=== PATIENT | male | born 1990 | race Caucasian/White ===

== ENCOUNTER → 2021-02-24 15:10 | Outpatient (CLI) | payer OTHER, SELFPAY ==
[2014-06-17 15:50] VITALS: BMI 31.4
[2021-02-24 18:07] LABS: Anion Gap 8 (5-15); BUN 13 mg/dL (7-18); BUN/Creat Ratio 12.3 RATIO (10-20); Chloride 102 mmol/L (98-107); Cholesterol 180 mg/dL (200); Creatinine, Serum 1.06 mg/dL (0.70-1.30); EST Glomerular Filtration Rate 87 mL/min (>60); Est Glom Filt Rate - Afr Amer 105 mL/min (>60); Glucose 90 mg/dL (74-106); High Density Lipoprotein 40 mg/dL; Potassium 3.9 mmol/L (3.5-5.1); Sodium Level 140 mmol/L (136-145); Thyroid Stim Hormone (TSH) 1.32 uIU/mL (0.358-3.74); Triglycerides 129 mg/dL; Very Low Density Lipoprotein 26 mg/dL (5-40)
== END ==
PROVIDERS: PCP Family Medicine; Visit Provider Family Medicine
DX: Z00.00 Encounter for general adult medical examination without abnormal findings (principal)
CPT/HCPCS: 36415; 80048; 80061; 84403; 84443

== ENCOUNTER → 2021-03-28 08:32 | Outpatient (CLI) | payer OTHER, SELFPAY ==
[2014-06-17 15:50] VITALS: BMI 31.4
== END ==
PROVIDERS: PCP Family Medicine; Visit Provider Family Medicine
DX: E66.9 Obesity, unspecified (principal)
CPT/HCPCS: 36415; 84403

== ENCOUNTER → 2021-06-26 15:37 | Outpatient (CLI) | payer OTHER, SELFPAY ==
--- NOTE | 2021-06-26 15:42 | RAD_ITS ---
HISTORY: Upper respiratory infection EXAMINATION/TECHNIQUE: XR Chest 2 Views COMPARISON: None FINDINGS: LINES/DEVICES: None. LUNGS: No focal airspace consolidation. No pulmonary edema. No pleural effusion. No pneumothorax. MEDIASTINUM AND CARDIOVASCULAR STRUCTURES: Cardiac silhouette not enlarged. Central airways and mediastinal contour are unremarkable. BONES AND SOFT TISSUES: No acute findings. RAD/Chest PA and Lateral IMPRESSION: No radiographic evidence of acute cardiopulmonary disease. at 0435 Reported and signed by: Lazaro Quintero MD Electronically Signed: Lazaro Quintero MD at 4:34 EDT Tel , Service support ,
[2021-06-26 18:05] LABS: Hematocrit 41.5 % (40-54); Mean Corp Hgb Conc 33.7 g/dL (32-36); Mean Corpuscular Hgb 29.3 pg (27.0-32.0); Mean Corpuscular Volume 86.8 fL (80-94); Mean Platelet Vol. 9.8 fl (6.2-12.0); Platelet Count 343 K/mm3 (150-450); RBC Distribution Width CV 12.5 % (11.6-14.6); RBC Distribution Width SD 39.5 fl (35.1-43.9); Red Blood Count 4.78 M/mm3 (4.6-6.2); White Blood Count 10.4 K/mm3 (4.4-11.0)
[2021-06-26 18:12] LABS: Anion Gap 9 (5-15); BUN 11 mg/dL (7-18); BUN/Creat Ratio 9.8 RATIO (10-20); Chloride 101 mmol/L (98-107); Creatinine, Serum 1.12 mg/dL (0.70-1.30); EST Glomerular Filtration Rate 81 mL/min (>60); Est Glom Filt Rate - Afr Amer 98 mL/min (>60); Glucose 87 mg/dL (74-106); Potassium 3.6 mmol/L (3.5-5.1); Sodium Level 138 mmol/L (136-145)
== END ==
PROVIDERS: PCP Family Medicine; Referring Provider Family Medicine; Visit Provider Family Medicine
DX: J06.9 Acute upper respiratory infection, unspecified (principal); R00.0 Tachycardia, unspecified
CPT/HCPCS: 36415; 71046; 80048; 85027; 85379; 87635; U0005; U0003

== ENCOUNTER 2021-06-27 18:16 | Emergency (ER) | payer OTHER, SELFPAY ==
[2021-06-27 18:16] VITALS: BP 151/90; PULSE 128; RESP 18; TEMP 39.4; O2SAT 97; BMI 34.0
[2021-06-27 18:17] VITALS: BP 151/90; PULSE 128; RESP 18; TEMP 39.4; O2SAT 97
--- NOTE | 2021-06-27 18:52 | EKG12_ITS ---
Test Reason : DYSRYTHMIA Blood Pressure : / mmHG Vent. Rate : 104 BPM Atrial Rate : 104 BPM P-R Int : 170 ms QRS Dur : 138 ms QT Int : 362 ms P-R-T Axes : 052 007 013 degrees QTc Int : 476 ms Sinus tachycardia Right bundle branch block Abnormal ECG Confirmed by TRACE VO, SADA ([id number]), associate editor SHAMAR SARAVIA ([id number]) on 06/30/2021 12:47:22 PM Referred By: CLEMENT Confirmed By:MAYCOL WOODWARD MD
[2021-06-27 19:14] VITALS: TEMP 39.4
--- NOTE | 2021-06-27 19:14 | EX.ED.DYSGE1 ---
HPI History of Present Illness Chief Complaint: Fever Informant: patient Onset/Context/Timing Onset: Weeks Context: Gradual Onset Timing: Continuous Current Severity: Mild Maximum Severity: Mild Narrative Narrative: 31-year-old male no significant past medical history. States he has not felt well since . He was initially seen in urgent care treated for otitis media with amoxicillin. And had a follow-up virtual visit with his primary care physician who put him on a cephalosporin. Says just been fatigued and real tired. Says he has a mild sore throat now. He denies any nausea vomiting or diarrhea. No shortness of breath or chest pain. No abdominal pain. He denies any melena. He denies any weight loss. He denies any dysuria. Said he is also recently been treated for viral URI with prednisone. She is not getting better and yesterday developed a fever. Prior similar symptoms: No Recent Illness/Hospitalization: No PFSH PFSH Medical History no medical history Home Medications prednisone See Taper PO DAILY 06/27/21 [History Last Taken Unknown] Allergy/AdvReac Type Severity Reaction Status Date / Time No Known Allergies Allergy Verified 06/27/21 18:40 Social History Smoking Status: Former smoker ROS ROS ED ROS Narrative Fatigue. Fever. Review of Systems ROS Unobtainable: Denies due to encephalopathy Constitutional Constitutional ED: Reports fever(s) Eyes Eyes: Denies change in vision ENT ENT ED: Reports sore throat; Denies ear pain Cardiovascular Cardiovascular: Denies chest pain Respiratory/Chest Respiratory/Chest: Denies dyspnea Gastrointestinal Gastrointestinal: Denies abdominal pain, diarrhea, nausea or vomiting Genitourinary Genitourinary ED: Denies dysuria or hematuria Musculoskeletal Musculoskeletal: Denies myalgias Integumentary Denies rash Neurologic Neurologic: Denies headache(s) Psychiatric Psychiatric: Denies depression Endocrine Endocrinology: Denies polyuria Allergic/Immunologic Allergic/Immunologic ED: Denies urticaria EXAM Physical Exam Narrative Exam Narrative: Young male no acute distress vital signs stable he does have a fever of 102.9. Clinically does not look septic or toxic. He is awake alert talking answering questions following commands. Pulse ox 97% on room air no hypoxia. HEENT exam unremarkable. TMs normal. Posterior pharynx normal. Moist pink. No erythema or exudate. No trouble swallowing or breathing. Neck nontender no JVD no lymphadenopathy. No meningismus. Lungs clear to auscultation bilaterally. Heart regular rhythm rate about 120 no murmur. Abdomen soft nontender normal bowel sounds no peritoneal signs. Moving all 4 extremities. Skin no rashes. No edema. Back nontender. Neurologically is awake alert with no focal motor deficits. Const Vital Signs: 06/27/21 18:16 06/27/21 18:17 06/27/21 19:14 Temperature 102.9 F H 102.9 F H 102.9 F H Temperature Source Oral Oral Oral Pulse Rate 128 H 128 H Respiratory Rate 18 18 Blood Pressure 151/90 H 151/90 H Blood Pressure Mean 110 110 Pulse Ox 97 97 Oxygen Delivery Method Room Air 06/27/21 19:25 06/27/21 20:00 06/27/21 21:00 Temperature 102.9 F H 100 F H 99.3 F H Temperature Source Oral Oral Oral Pulse Rate 128 H 105 H 105 H Respiratory Rate 18 20 H 18 Blood Pressure 151/90 H 133/84 H 118/84 H Blood Pressure Mean 110 100 95 Pulse Ox 97 96 100 Oxygen Delivery Method Room Air Positive well nourished and well developed; Negative for obese, cachectic, contractures or unkempt General Appearance ED: well developed and NAD; Negative for unkempt, cachectic, contractures, cyanotic, diaphoretic or pallor Nutritional Appearance: Negative for cachectic or obese HEENT Reports moist mucous membranes Negative for trauma or tenderness Eyes PERRL and EOMs intact bilaterally Neck no lymphadenopathy, supple and no JVD General: Negative for tenderness Chest Wall inspection of chest normal and palpation of chest normal Resp normal respiratory effort and clear to auscultation bilaterally Auscultation: Negative for rales, rhonchi or wheezes Cardio regular rhythm, S1 normal heart sound, S2 normal heart sound and no murmurs Rate: tachycardic GI normal to inspection, nondistended, normoactive bowel sounds, non-tender, non-distended and no masses Inspection: Negative for abdominal distention Auscultation: normoactive bowel sounds Palpation: soft; Negative for tender, guarding or rebound tenderness present Back/Spine no CVA tenderness Cervical Spine: Negative for cervical spine tenderness Thoracic Spine / Upper Back: Negative for thoracic spinal tenderness or paraspinal muscle tenderness Lumbar Spine / Lower Back: Negative for lumbar spinal tenderness Extremity normal to inspection General Extremety ED: Negative for edema or tenderness General Extremity: Negative for edema Neuro oriented x3, CN's II-XII intact bilaterally and no sensory deficits noted Sensorium / Orientation: alert; Negative for orientation impaired, lethargic or stuporous Motor Exam: strength 5/5 throughout Psych mental status grossly normal Appearance: Negative for unkempt Attitude: No agitated Mood & Affect: Negative for depressed, anxious or tearful Skin no rashes or lesions noted, no wounds and No skin turgor normal General Skin Exam: Negative for elasticity normal, jaundice or pallor Rashes: No rashes noted MDM MDM MDM Narrative Medical decision making narrative: 31-year-old male with fatigue and just not feeling well for a month. Antibiotics for otitis media and then possibly a sore throat. He developed a fever in the last 48 hours. Clinically benign exam. No specific source. We went through the sepsis protocol. Treated with Toradol for his fever because he had Tylenol last several hours. Repeat exam patient is doing well at 9:25 PM. His exam is benign. He clinically looks well. Significant other is at bedside. The 3 of us went over all his test results. I reexamined him and there is no new findings. He will be discharged home. Fluids and rest. Tylenol Motrin. He knows blood cultures are pending. And follow-up with further evaluation with his primary care physician. Lab Data Attestation: I reviewed the patient's lab results. Lab results narrative: CBC shows a white count slightly elevated 11.9. Hemoglobin 14.8. Platelets normal. PT INR PTT unremarkable. Electrolytes unremarkable gap of 7 normal BUN and creatinine. Glucose of 103. Liver enzymes normal. Lactic acid 1.3. UA normal. Mononucleus screen is negative. Chest x-ray negative. Rapid strep negative. Labs: Laboratory Results - last 24 hr 06/27/21 06/27/21 06/27/21 19:07 19:07 19:07 WBC 11.9 H RBC 5.03 Hgb 14.8 Hct 43.7 MCV 86.9 MCH 29.4 MCHC 33.9 RDW Std Deviation 39.2 RDW Coeff of Jose 12.4 Plt Count 319 MPV 9.5 Immature Gran % (Auto) 0.300 Neut % (Auto) 80.8 H Lymph % (Auto) 10.0 L Caswell % (Auto) 8.4 Eos % (Auto) 0.2 Baso % (Auto) 0.3 Absolute Neuts (auto) 9.6 H Absolute Lymphs (auto) 1.19 Nucleated RBC % 0 PT 13.1 INR 1.1 APTT 30.4 Sodium 137 Potassium 3.7 Chloride 103 Carbon Dioxide 27.0 Anion Gap 7 BUN 11 Creatinine 1.07 Estim Creat Clear Calc 100.03 Est GFR (MDRD) Af Amer 103 Est GFR (MDRD) Non-Af 85 BUN/Creatinine Ratio 10.3 Glucose 103 Lactic Acid Calcium 8.9 Total Bilirubin 0.60 AST 19 ALT 30 Alkaline Phosphatase 79 Total Protein 8.2 Albumin 3.7 Globulin 4.5 H Albumin/Globulin Ratio 0.8 L Urine Color Urine Clarity Urine pH Ur Specific Christopher Urine Protein Urine Glucose (UA) Urine Ketones Urine Occult Blood Urine Nitrite Urine Bilirubin Urine Urobilinogen Ur Leukocyte Esterase Urine RBC Urine WBC Ur Squamous Epith Cells Urine Bacteria Urine Mucus Monoscreen 06/27/21 06/27/21 06/27/21 19:07 19:07 19:10 WBC RBC Hgb Hct MCV MCH MCHC RDW Std Deviation RDW Coeff of Jose Plt Count MPV Immature Gran % (Auto) Neut % (Auto) Lymph % (Auto) Caswell % (Auto) Eos % (Auto) Baso % (Auto) Absolute Neuts (auto) Absolute Lymphs (auto) Nucleated RBC % PT INR APTT Sodium Potassium Chloride Carbon Dioxide Anion Gap BUN Creatinine Estim Creat Clear Calc Est GFR (MDRD) Af Amer Est GFR (MDRD) Non-Af BUN/Creatinine Ratio Glucose Lactic Acid 1.3 Calcium Total Bilirubin AST ALT Alkaline Phosphatase Total Protein Albumin Globulin Albumin/Globulin Ratio Urine Color Yellow Urine Clarity Clear Urine pH 7.0 Ur Specific Christopher 1.010 Urine Protein 15 H Urine Glucose (UA) Normal Urine Ketones Negative Urine Occult Blood 25 H Urine Nitrite Negative Urine Bilirubin Negative Urine Urobilinogen Normal Ur Leukocyte Esterase Negative Urine RBC 0-5 SEEN Urine WBC 0 SEEN Ur Squamous Epith Cells 0 SEEN Urine Bacteria 0 SEEN Urine Mucus 0 SEEN Monoscreen Negative Radiography Chest X-Ray - ED: 1 View, Read by ED Physician, Read by Radiologist, Normal, Heart, Lungs, Mediastinum, Bony Structures, No Acute Disease and Chronic Changes Diagnostic Testing: Clinical Impression(s) from Imaging Studies Chest X-Ray 06/27/21 19:18 IMPRESSION: No radiographic evidence of acute cardiopulmonary disease. Electronically Signed: Jitendra Basurto MD at 19:41 EDT , Service support , Rhythm Strip Rhythm Strip: Sinus Tach Rate: 104 Ectopy: None EKG Initial EKG: Attestation: I personally reviewed and interpreted this EKG as follows: Interpretation: Sinus Rhythm, No Acute Injury Pattern and Sinus Tachycardia Comments: Sinus tachycardia rate of 104 no acute signs of ME or ischemia. Right bundle branch block. No old EKG available for comparison. Discharge Plan Triage Chief Complaint: Fever ED Provider: Rony Miller Dx/Rx/DC Orders Clinical Impression: Fever Instructions: ED FUO Adult Prescriptions: No Action prednisone 10 mg tablet See Taper mg PO DAILY RF: 0 Primary Care Provider: Sanket Love Referrals: Sanket Love MD [Primary Care Provider] - 2 Days Activity Restrictions/Additional Instructions: Your test were all unremarkable today. Your blood cultures are pending if those return are positive we will call you. Plenty of fluids and rest. Alternate Tylenol Motrin for any fever. Return if you are feeling worse. Call and follow-up with your primary care physician on Wednesday. Disposition Disposition: Home, Self Care
--- NOTE | 2021-06-27 19:18 | RAD_ITS ---
EXAM: XR CHEST, 1 VIEW CLINICAL INDICATION: fever TECHNIQUE: Frontal view of the chest. This report was created using [employer] report generation technology. COMPARISON: Study done yesterday FINDINGS: LUNGS AND PLEURAL SPACES: Unremarkable. No consolidation or edema. No pneumothorax. No effusion. HEART: Unremarkable. Cardiac silhouette not enlarged. MEDIASTINUM: Central airways and mediastinal contour are unremarkable. BONES/JOINTS: Unremarkable. SOFT TISSUES: Unremarkable. RAD/Chest 1 View (Portable) IMPRESSION: No radiographic evidence of acute cardiopulmonary disease. Electronically Signed: Jitendra Basurto MD at 19:41 EDT , Service support ,
[2021-06-27 19:25] VITALS: BP 151/90; PULSE 128; RESP 18; TEMP 39.4; O2SAT 97
[2021-06-27] MEDS: Ketorolac 30 MG/ML Syringe IV (19:27)
[2021-06-27] MEDS: 0.9% Normal Saline 1,000 ML 999 ML IV (19:27)
[2021-06-27 19:29] LABS: Bacteria 0 SEEN /hpf (None Seen); Mucous, Urine 0 SEEN /hpf (<or=2+); Squamous Epithelial Cells - UA 0 SEEN /hpf (0-5); White Blood Cells 0 SEEN /hpf (0-5)
[2021-06-27 19:34] LABS: Color, Urine Yellow (Yellow); Glucose, Dipstick Normal (Normal); Ketone-Dipstick Negative (Negative); Leukocyte Esterase-Dipstick Negative /ul (Negative); Nitrite-Dipstick Negative (Negative); Occult Blood-Urine 25 /ul (Negative); Protein-Dipstick 15 mg/dl (Negative); Urine Bilirubin Dipstick Negative (Negative); Urine Clarity Clear (Clear); Urine Urobilinogen Normal (Normal)
[2021-06-27 19:38] LABS: Internal QC Validated? YES +Cl - CLEAR BKGD; Monotest Negative (Negative)
[2021-06-27 19:40] LABS: Red Blood Cells-Urine 0-5 SEEN /hpf (0-5)
[2021-06-27 19:42] LABS: Absolute Lymphocyte Count 1.19 X10^3/uL (0.83-4.51); Absolute Neutrophil Count 9.6 X10^3/uL (2.0-7.7); Basophil# 0.04 X10^3/uL; Basophil% 0.3 % (0-1); Eosinophil# 0.02 X10^3/uL; Eosinophils% 0.2 % (0-5); Hematocrit 43.7 % (40-54); Hemoglobin 14.8 g/dL (13.0-16.5); Lymphocyte # 1.19 X10^3/ul (0.83-4.51); Mean Corp Hgb Conc 33.9 g/dL (32-36); Mean Corpuscular Hgb 29.4 pg (27.0-32.0); Mean Corpuscular Volume 86.9 fL (80-94); Mean Platelet Vol. 9.5 fl (6.2-12.0); Monocyte% 8.4 % (0-10); NRBC Flagged by Analyzer 0 % (0-5); Neutrophil # 9.63 X10^3/uL (2.7-7.7); Neutrophil % 80.8 % (47-70); Platelet Count 319 K/mm3 (150-450); RBC Distribution Width CV 12.4 % (11.6-14.6); RBC Distribution Width SD 39.2 fl (35.1-43.9); Red Blood Count 5.03 M/mm3 (4.6-6.2); White Blood Count 11.9 K/mm3 (4.4-11.0)
[2021-06-27 19:52] LABS: International Normalized Ratio 1.1; Prothrombin Time (Protime)PT. 13.1 SECONDS (11.7-14.9)
[2021-06-27 19:53] LABS: Partial Thromboplast Time 30.4 Seconds (24.1-36.2)
[2021-06-27 20:00] VITALS: BP 133/84; PULSE 105; RESP 20; TEMP 37.7; O2SAT 96
[2021-06-27 20:02] LABS: ALB/GLOB Ratio 0.8 RATIO (0.9-2.4); AST(SGOT) 19 U/L (15-37); Alanine Aminotransfer ALT/SGPT 30 U/L (16-61); Albumin, Serum 3.7 g/dL (3.2-5.0); Alkaline Phosphatase 79 U/L (45-117); Anion Gap 7 (5-15); BUN 11 mg/dL (7-18); BUN/Creat Ratio 10.3 RATIO (10-20); Calcium,Total 8.9 mg/dL (8.5-10.1); Chloride 103 mmol/L (98-107); Creatinine, Serum 1.07 mg/dL (0.70-1.30); EST Glomerular Filtration Rate 85 mL/min (>60); Est Glom Filt Rate - Afr Amer 103 mL/min (>60); Estimated Creatinine Clearance 100.03 ml/min; Globulin 4.5 g/dL (2.2-4.2); Glucose 103 mg/dL (74-106); Potassium 3.7 mmol/L (3.5-5.1); Protein, Total 8.2 g/dL (6.4-8.2); Sodium Level 137 mmol/L (136-145)
[2021-06-27 20:04] LABS: Lactic Acid 1.3 mmol/L (0.4-1.9)
[2021-06-27 21:00] VITALS: BP 118/84; PULSE 105; RESP 18; TEMP 37.4; O2SAT 100
== END 2021-06-27 21:41 | disposition home or self-care (01) ==
PROVIDERS: Emergency Provider Emergency Medicine; PCP Family Medicine
DX: R50.9 Fever, unspecified (principal); Z87.891 Personal history of nicotine dependence
CPT/HCPCS: 71045; 80053; 81001; 83605; 85025; 85610; 85730; 86308; 87040; 87086; 87880; 93005; 96361; 96374; 99285; J7030; A4216

== ENCOUNTER → 2021-06-30 | Outpatient (CLI) | payer OTHER, SELFPAY | END | disposition home or self-care (01) | LOC: LABSPEC 15:51 | PROVIDERS: PCP Family Medicine; Referring Provider Otolaryngology Otolaryngology/Facial Plastic Surgery; Visit Provider Otolaryngology Otolaryngology/Facial Plastic Surgery | DX: J02.9 Acute pharyngitis, unspecified (principal) | CPT/HCPCS: 87070 ==

== ENCOUNTER → 2021-09-15 | Outpatient (CLI) | payer OTHER, SELFPAY | END | disposition home or self-care (01) | LOC: LABSPEC 10:20 | PROVIDERS: PCP Family Medicine; Referring Provider Physician Assistant; Visit Provider Physician Assistant | DX: Z11.52 Encounter for screening for COVID-19 (principal) | CPT/HCPCS: 87635; U0005; U0003 ==

== ENCOUNTER → 2023-08-18 | Outpatient (CLI) | payer BC, SELFPAY ==
[2023-08-18 15:47] LABS: ALB/GLOB Ratio 1.1 RATIO (0.9-2.4); AST(SGOT) 17 U/L (15-37); Alanine Aminotransfer ALT/SGPT 28 U/L (16-61); Alkaline Phosphatase 65 U/L (45-117); Anion Gap 6 (5-15); BUN 14 mg/dL (7-18); BUN/Creat Ratio 14.3 RATIO (10-20); Calcium,Total 9.1 mg/dL (8.5-10.1); Chloride 104 mmol/L (98-107); Creatinine, Serum 0.98 mg/dL (0.70-1.30); EST Glomerular Filtration Rate 93 mL/min (>60); Est Glom Filt Rate - Afr Amer 113 mL/min (>60); Globulin 3.8 g/dL (2.2-4.2); Glucose 110 mg/dL (74-106); Protein, Total 7.8 g/dL (6.4-8.2); Sodium Level 139 mmol/L (136-145)
== END | disposition home or self-care (01) ==
LOC: MFPLAB 14:03
PROVIDERS: PCP Family Medicine; Visit Provider Family Medicine
DX: B35.1 Tinea unguium (principal)
CPT/HCPCS: 36415; 80053

== ENCOUNTER 2023-09-21 07:09 | Day surgery (SDC) | payer BC, SELFPAY ==
--- NOTE | 2023-09-21 07:17 | PCM.HP.BLA ---
History and Physical Date of Admission: 09/21/23 Visit Reasons: ANAL FISSURE Chief Complaint: anal fissure Is patient in pain?: No Allergies No Known Allergies Allergy (Verified 08/20/23 13:07) Medications linaclotide 145 mcg capsule (Linzess) 145 mcg PO DAILY 08/20/23 [History Confirmed 08/20/23] multivitamin 1 tab PO DAILY 08/20/23 [History Confirmed 08/20/23] PFSH Medical History (Updated 08/20/23 @ 13:05 by Delicia Qiu) Sleep apnea Surgical History (Updated 08/20/23 @ 13:06 by Delicia Qiu) History of appendectomy History of repair of ACL Social History (Updated 08/20/23 @ 13:06 by Delicia Qiu) Smoking Status: Former smoker alcohol intake: current substance use type: does not use HPI HPI HPI: 63-year-old gentleman is referred by Dr. Sanket Love for surgical consultation regarding a suspected anal fissure and a written copy my surgical consult and recommendations will return to him. Patient states that he has had this fissure for least 5 years. 90% of the time is comfortable but 10% of the time is absolutely miserable. He will have pain and bleeding. He does have problems with chronic constipation. He has tried Metamucil in the past and he felt that that only made things worse. Currently he is on Linzess with some improvement. He has never had a colonoscopy. He has never had any visual anoscopic inspection of this area. There is no family history of colon cancer or colon polyps inflammatory bowel disease. 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 ROS General General: No weight change, appetite, fatigue, colon cancer, breast cancer or weakness HEENT HEENT: No difficulty swallowing, eye injury, eye surgery, swollen glands or hoarseness Endo Endocrine: No thyroid disease, diabetes mellitus, thyroid cancer, Hair loss, heat intolerance or cold intolerance Skin Skin: No rash or changing moles Musc Musculoskeletal: No back problems, arthritis, rheumatoid arthritis, gout or joint pain Cardio Cardiovascular: No murmur, pacemaker, heart disease, atrial fibrillation, high blood pressure, heart attack, heart stent, palpitations, shortness of breat with exertion or chest pain Psych Psychiatric: No depression, anxiety or hearing voices Resp Respiratory: No shortness of breath, Yes sleep apnea, No cough, No COPD, No asthma, No emphysema and No wheezing Gastro Gastrointestinal: No abdominal pain, No nausea or vomiting, No diarrhea, Yes constipation, No blood in stool, No acid reflux, No hemorrhoids, No ulcers, No gallbladder problem and No black,tarry stools Omid Hematologic: No blood thinners, No blood disorders, No bleeding, No anemia and No blood clots Neuro Neurologic: No system reviewed and no additional complaints, except as documented, No as per HPI, No abnormal gait, No abnormal hearing, No abnormal movements, No abnormal speech, No behavioral changes, No burning sensations, No confusion, No convulsions, No disequilibrium, No dizziness, No localized weakness, No frequent falls, No headache(s), No lack of coordination, No loss of vision, No memory loss, No numbness, No other visual disturbances, No radicular pain, No restless legs, No sensory deficit, No syncope, No tingling, No tremor(s), No weakness and No other Exam Const General: cooperative, healthy appearing, comfortable and no acute distress [facility] Head: normal to inspection Eyes General: appearance normal, both eyes and all related structures Neck Neck: normal visual inspection Chest Chest palpation & inspection: normal inspection of the chest Resp Effort & Inspection: normal respiratory effort Auscultation: clear to auscultation bilaterally Cardio Rate: regular rate Rhythm: regular rhythm GI Inspection: normal to inspection Other: Abdomen soft, overweight, nontender, no hepatosplenomegaly External anal exam reveals some slight dried up desquamation. Posterior anal fissure suspected with some acute erythema. 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 When it is symptomatic it is very uncomfortable. I recommend to him diltiazem ointment twice daily and we can initiate that now. With this chronicity of anal fissure I do not think hydrocortisone suppositories will assist. We discussed treatment options like anal fissurectomy and Botox therapy and diltiazem therapy and lateral internal sphincterotomy of variable lengths. We also discussed potential involvement of colorectal surgeon for a advancement flap. I do recommend to the patient initiation of diltiazem and a colonoscopy for better definition. Based upon that information and the patient can decide if we then proceed with at least a fissurectomy to clean the chronicity of the area. He is an option to ask and have questions answered. Will schedule procedure at his discretion. Copy: Dr. Sanket Mclain M.D., F.A.C.S. I have examined the patient and the H&P has been reviewed. There are no clinical changes since date of exam. Justin Mclain M.D., F.A.C.S.
[2023-09-21] MEDS: Lactated Ringers 1,000 ML 15 ML IV (07:30)
--- OUTSIDE RECORDS SUMMARY | 2023-09-21 07:35 | XMS RPT_ITS | CCD ---
Author Name Unknown Address [address] [place] [address] Organization [facility] Results Test Name Value Interpretation Reference Range Facil ity Progress note 10-22-2021 Note Date & Type Note Facility 10-22-2021 Note HNO ID: [id number] Author: Jenni Houser APRN.[facility] Service: ? Author Type: Nurse Practitioner Type: Progress Notes Filed: 10/22/2021 12:05 PM Note Text: CC: Patient presents with: Sore Throat: RT ear plugged x Wednesday HPI: Hemanth Orozco is a 31 year old male who presents to the office with complaint of sore throat and ear symptoms for 4 days. Symptoms are worsening Associated symptoms includes sore throat. Denies fever, nausea, vomiting and diarrhea. Treatments tried include nothing so far. with no relief of symptoms. Sick contacts: unknown. History of asthma, frequent episodes of bronchitis, chronic bronchitis, bronchiectasis or COPD: No Smoker: No Seasonal/environmental allergies: No The ROS is otherwise negative. The patient's pmh, medications, allergies, and past visits are reviewed. PHYSICAL EXAM: BP 126/78 Pulse 97 Temp 37 ?C (98.6 ?F) Resp 16 Wt 109 kg (240 lb 6.4 oz) SpO2 98% General appearance: alert, cooperative, pleasant, in no acute distress Head: Normocephalic Eyes: EOM's intact, conjunctiva pink and moist, no icterus, sclera white, non-injected Ears: Right ear: External ear/canal- Normal, TM - erythema noted. Left ear: External ear/canal- Normal, TM - clear with good landmarks Oropharynx:moderate erythema, without exudates present No past medical history on file. No past surgical history on file. ALLERGIES Patient has no known allergies. MEDICATIONS fluticasone (FLONASE) 50 mcg/actuation nasal spray Use 2 Sprays in each nostril once daily. Rinse mouth after use. No family history on file. Social History Tobacco Use - Smoking status: Former Smoker Types: Cigarettes - Smokeless tobacco: Former User Types: Snuff Substance Use Topics - Alcohol use: Not on file - Drug use: Not on file ASSESSMENT/PLAN: 1. Sore throat - ICD9: 462, ICD10: J02.9 - STREP A MOLECULAR (POC) - negative Prescription instructions reviewed with patient as applicable. Augmentin bid for 7 days prescribed instructed to follow up if symptoms worsen. Potential red flag symptoms discussed with the patient. Reviewed appropriate action plan to take if red flag symptoms occur. Patient agreeable to treatment plan. Jenni Houser APRN.[facility] Progress note 07-21-2021 Note Date & Type Note Facility 07-21-2021 Note HNO ID: [id number] Author: Racquel Whaley PA-C Service: ? Author Type: Physician Strawberry Grower Type: Progress Notes Filed: 07/21/2021 11:09 AM Note Text: This note was created using [employer]. Subjective Hemanth Orozco is a 31 year old male. HPI Patient presents with body aches, sore throat and fever. He had a fever and sore throat 2 weeks ago and was seen in the ER where he had a negative mono and strep. He followed up with ENT and his family physician since. ENT had a positive strep culture so he completed 7 days of cefdinir about 5-7 days ago. The past 2-3 days his sore throat has returned and he started having fevers again 2-3 days ago. No cough or diarrhea. He was tested at the ER for covid19 initially and that was negative. Review of Systems Constitutional: Positive for chills and fever. Negative for fatigue. HENT: Positive for sore throat. Negative for congestion. Respiratory: Negative for cough, shortness of breath and wheezing. Cardiovascular: Negative. Gastrointestinal: Negative. Musculoskeletal: Negative. Skin: Negative. Neurological: Positive for headaches. All other systems reviewed and are negative. No past medical history on file. Current Outpatient Medications Medication Sig Dispense Refill - cefdinir (OMNICEF) 300 mg capsule Take 1 capsule by mouth twice daily for 10 days. 20 capsule 0 - fluticasone (FLONASE) 50 mcg/actuation nasal spray Use 2 Sprays in each nostril once daily. Rinse mouth after use. 1 Each 0 No current facility-administered medications for this visit. No past surgical history on file. No family history on file. Social History Tobacco Use - Smoking status: Former Smoker Types: Cigarettes - Smokeless tobacco: Former User Types: Snuff Substance Use Topics - Alcohol use: Not on file - Drug use: Not on file Objective BP 128/86 Pulse 102 Temp 37.6 ?C (99.7 ?F) Resp 16 Wt 105.9 kg (233 lb 6.4 oz) SpO2 97% Physical Exam Vitals reviewed. Constitutional: Appearance: Normal appearance. HENT: Head: Normocephalic and atraumatic. Right Ear: Tympanic membrane, ear canal and external ear normal. Left Ear: Tympanic membrane, ear canal and external ear normal. Nose: Nose normal. Mouth/Throat: Mouth: Mucous membranes are moist. Comments: Bilateral 3+ swollen tonsils with exudates. No sign of peritonsillar or retropharyngeal abscess. Cardiovascular: Rate and Rhythm: Normal rate and regular rhythm. Heart sounds: Normal heart sounds. Pulmonary: Effort: Pulmonary effort is normal. Breath sounds: Normal breath sounds. Musculoskeletal: Cervical back: Neck supple. Lymphadenopathy: Cervical: No cervical adenopathy. Skin: General: Skin is warm and dry. Findings: No rash. Neurological: General: No focal deficit present. Mental Status: He is alert and oriented to person, place, and time. Assessment and Plan ASSESSMENT/PLAN: 1. Sore throat - ICD9: 462, ICD10: J02.9 Patient positive for strep at ENT 2 weeks ago and improved on cefdinir x 7 days. Symptoms returned a few days after antibiotic finished. He is negative for strep on our PCR however he did have a positive test 2 weeks ago and improved on antibiotics. I will recheck a mono as well and covid19 being ruled out. If mono or covid positive likely can d/c the cefdinir. Discussed following up with ENT as well. Patient agreeable. - STREP A MOLECULAR (POC) - MONOTEST, INFECTIOUS MONO - 2019 CORONAVIRUS Racquel Whaley PA-C [facility] Progress note 05-27-2021 Note Date & Type Note Facility 05-27-2021 Note HNO ID: [id number] Author: Alise Malcolm APRN.[facility] Service: ? Author Type: Nurse Practitioner Type: Progress Notes Filed: 05/27/2021 9:50 AM Note Text: Subjective HPI Hemanth Orozco is a 31 year old male who presents with sinus congestion, drainage, sore throat, cough and pressure in his ears for the past 3 days. He took a rapid COVID test at work and it was negative. He has been vaccinated. Has a history of sinusitis. No fever. Review of Systems Constitutional: Negative for chills and fever. HENT: Positive for congestion, ear pain and sore throat. Respiratory: Positive for cough. Negative for shortness of breath. Cardiovascular: Negative. Musculoskeletal: Negative for myalgias. BP 118/82 Pulse 82 Temp 37 ?C (98.6 ?F) Resp 14 Wt 108.9 kg (240 lb) SpO2 97% No past medical history on file. No past surgical history on file. ALLERGIES Patient has no known allergies. MEDICATIONS amoxicillin-clavulanic acid (AUGMENTIN) 875-125 mg per tablet Take 1 tablet by mouth twice daily for 10 days. fluticasone (FLONASE) 50 mcg/actuation nasal spray Use 2 Sprays in each nostril once daily. Rinse mouth after use. No family history on file. Social History Tobacco Use - Smoking status: Former Smoker Types: Cigarettes - Smokeless tobacco: Former User Types: Snuff Substance Use Topics - Alcohol use: Not on file - Drug use: Not on file Objective Physical Exam Vitals and nursing note reviewed. HENT: Right Ear: Tympanic membrane, ear canal and external ear normal. Left Ear: Ear canal and external ear normal. A middle ear effusion is present. Tympanic membrane is injected. Nose: Congestion present. Mouth/Throat: Lips: [place]. Mouth: Mucous membranes are moist. Pharynx: Oropharynx is clear. Uvula midline. No oropharyngeal exudate or posterior oropharyngeal erythema. Cardiovascular: Rate and Rhythm: Normal rate and regular rhythm. Heart sounds: Normal heart sounds. Pulmonary: Effort: Pulmonary effort is normal. No respiratory distress. Breath sounds: Normal breath sounds. No wheezing or rales. Musculoskeletal: Cervical back: Neck supple. Lymphadenopathy: Cervical: No cervical adenopathy. Skin: General: Skin is warm and dry. Findings: No erythema or rash. Neurological: Mental Status: He is alert. ASSESSMENT/PLAN: 1. Other acute nonsuppurative otitis media of left ear, recurrence not specified - ICD9: 381.00, ICD10: H65.192 (primary diagnosis) - Will begin treatment with Amoxicillin for 10 days - Supportive care with plenty of fluids, rest, and analgesia prn. - AMOXICILLIN 875 MG-POTASSIUM CLAVULANATE 125 MG TABLET 2. Viral sinusitis - ICD9: 473.9, 079.99, ICD10: J32.9, B97.89 - Discussed viral etiology and rationale for treatment. - Symptomatic treatment with prn analgesia - Supportive care with fluids and rest - FLUTICASONE PROPIONATE 50 MCG/ACTUATION NASAL SPRAY,SUSPENSION - offered COVID test, patient declined. He did have a negative rapid test at work. - Follow-up with your PCP in 3-5 days if symptoms have not improved or sooner if symptoms worsen - Discussed red flags and need for immediate medical evaluation if any occur. - Discussed supportive care treatment with fluids, rest and analgesia. - Discussed expected course of illness Alise Malcolm, NICK.[facility] Summary Purpose Family History No Family History Records Found Advance Directives No Advanced Directives Records Found Additional Source Comments (unrecognized sect ion and content) No Status Records Found INFORMATION SOURCE (unrecogn ized section and content) FOR RECORDS PERTAINING TO PATIENTS WHO ARE OR HAVE BEEN ENROLLED IN A CHEMICAL DEPENDENCY/SUBSTANCEABUSE PROGRAM, SOME INFORMATION MAY BE OMITTED. This clinical summary was aggregated from multiple sources. Caution should be exercised in using it in the provision of clinical care. This summary normalizes information from multiple sources, and as a consequence, information in this document may materially change the coding, format and clinical context of patient data. In addition, data may be omitted in some cases. CLINICAL DECISIONS SHOULD BE BASED ON THE PRIMARY CLINICAL RECORDS. [employer] provides no warranty or guarantee of the accuracy or completeness of information in this document.
[2023-09-21 07:51] VITALS: BP 119/74; PULSE 100; RESP 16; TEMP 36.4; O2SAT 97; BMI 43.9
--- NOTE | 2023-09-21 08:15 | COLBX_PTH ---
PATHOLOGY RESULTS PATIENT: HEMANTH SOTOMAYOR LOC: EN U#:[id number] AGE/SX: 33/M ROOM: RE09/21/[address]: Dr. Justin Mclain MD : 1990 BED: DIS: 09/21/2023 SPEC #: [id number] RECD: 09/21/23 11:36 STATUS: DESIREE FARAH #: [id number] ALFREDO: 09/21/23 08:[address]: Justin Mclain DEPT: SURGICAL PATHOLOGY RECD BY: Lucia Espinoza ENTERED: 09/21/23 11:37 SP TYPE: COLON BX OTHR DR: Dr. Sanket Love MD Tissues: Rectum, NOS Procedures: Surgery Specimen Level IV HEADER OPERATION: Colonoscopy with biopsy PRE-OP DIAGNOSIS: Anal fissure TISSUE SUBMITTED: Rectal polyp biopsy MICROSCOPIC DIAGNOSIS Rectal polyp, biopsy: Fragments of hyperplastic polyp. ZENON:[place] 09/22/2023 MICROSCOPIC DESCRIPTION Slides are reviewed. GROSS DESCRIPTION Received in fixative is one container labeled with the patient's name and designated rectal polyp biopsy. The specimen consists of multiple irregular fragments of light charles soft tissue that in aggregate measure 0.8 x 0.3 x 0.1 cm. The specimen is totally submitted in one cassette. / SJ:rg 09/21/2022 TC:1 CPT: 48707
[2023-09-21 08:49] VITALS: BP 101/58; BP 119/74; PULSE 87; RESP 18; TEMP 36.5; O2SAT 97
--- NOTE | 2023-09-21 08:51 | OP.COLON_ITS ---
Patient Name: Sarahi Orozco Procedure Date: 09/21/2023 8:22 AM Date of : 1990 Age: 33 Procedure: Colonoscopy Indications: Rectal bleeding Providers: Justin Mclain MD Referring MD: Justin Mclain MD Medicines: See the Anesthesia note for documentation of the administered medications Patient Profile: Last Colonoscopy: none. The patient's first colonoscopy is today. Complications: No immediate complications. Procedure: Pre-Anesthesia Assessment: - Prior to the procedure, a History and Physical was performed, and patient medications and allergies were reviewed. The patient's tolerance of previous anesthesia was also reviewed. The risks and benefits of the procedure and the sedation options and risks were discussed with the patient. All questions were answered, and informed consent was obtained. Prior Anticoagulants: The patient has taken no anticoagulant or antiplatelet agents. ASA Grade Assessment: II - A patient with mild systemic disease. After reviewing the risks and benefits, the patient was deemed in satisfactory condition to undergo the procedure. After I obtained informed consent, the scope was passed under direct vision. Throughout the procedure, the patient's blood pressure, pulse, and oxygen saturations were monitored continuously. The adult colonoscope was introduced through the anus and advanced to the ileocecal valve. The colonoscopy was performed without difficulty. The patient tolerated the procedure well. The quality of the bowel preparation was good. The ileocecal valve and the appendiceal orifice were photographed. Scope In: 8:30:08 AM Scope Withdrawal Time 0 hours 8 minutes 48 seconds Scope Out: 8:42:21 AM Total Procedure Duration Time 0 hours 12 minutes 13 seconds Findings: An anal fissure was found on perianal exam. The digital rectal exam findings include non-thrombosed external hemorrhoids, non-thrombosed internal hemorrhoids and internal hemorrhoids that prolapse with straining, but spontaneously regress to the resting position (Grade II). Pertinent negatives include normal prostate (size, shape, and consistency). A 6 mm polyp was found in the distal rectum. The polyp was sessile. The polyp was removed with a cold biopsy forceps. Resection and retrieval were complete. The exam was otherwise without abnormality. Impression: - Anal fissure found on perianal exam. - Non-thrombosed external hemorrhoids, non-thrombosed internal hemorrhoids and internal hemorrhoids that prolapse with straining, but spontaneously regress to the resting position (Grade II) found on digital rectal exam. - One 6 mm polyp in the distal rectum, removed with a cold biopsy forceps. Resected and retrieved. - The examination was otherwise normal. Recommendation: - Discharge patient to home. - Resume previous diet. - Continue present medications. - Repeat colonoscopy in 5 years for surveillance based on pathology results. - Telephone my office for pathology results in 1 week. Erythema of the perianal skin and cleft. Will prescribe nystatin ointment twice daily. Seemingly healed posterior anal fissure on previously prescribed diltiazem ointment. No active rectal bleeding identified today. Procedure Code(s): --- Professional --- 96697, Colonoscopy, flexible; with biopsy, single or multiple Diagnosis Code(s): --- Professional --- K60.2, Anal fissure, unspecified K64.1, Second degree hemorrhoids K64.4, Residual hemorrhoidal skin tags D12.8, Benign neoplasm of rectum K62.5, Hemorrhage of anus and rectum CPT copyright 2021 [employer]. All rights reserved. The codes documented in this report are preliminary and upon computer science instructor review may be revised to meet current compliance requirements. Justin Mclain MD 09/21/2023 8:50:24 AM This report has been signed electronically. Number of Addenda: 0 Note Initiated On: 09/21/2023 8:22 AM
--- NOTE | 2023-09-21 08:51 | OP.CCLET_ITS ---
09/21/2023 Sanket Love MD [address] [place] [address] Re : Colonoscopy procedure for Sarahi Orozco Dear Dr. Love This procedure was performed on Thursday, September 21, 2023. My impressions and recommendations are as follows: Impressions : - Anal fissure found on perianal exam. - Non-thrombosed external hemorrhoids, non-thrombosed internal hemorrhoids and internal hemorrhoids that prolapse with straining, but spontaneously regress to the resting position (Grade II) found on digital rectal exam. - One 6 mm polyp in the distal rectum, removed with a cold biopsy forceps. Resected and retrieved. - The examination was otherwise normal. Recommendations : - Discharge patient to home. - Resume previous diet. - Continue present medications. - Repeat colonoscopy in 5 years for surveillance based on pathology results. - Telephone my office for pathology results in 1 week. Erythema of the perianal skin and lisandra cleft. Will prescribe nystatin ointment twice daily. Seemingly healed posterior anal fissure on previously prescribed diltiazem ointment. No active rectal bleeding identified today. My findings are described in the full procedure note, which is enclosed. If I can be of further assistance, please feel free to contact me at Doctor phone number(s): Work: . Sincerely, Justin Mclain MD 09/21/2023 8:50:24 AM This report has been signed electronically.
[2023-09-21 08:55] VITALS: BP 113/68; BP 119/74; PULSE 85; RESP 18; O2SAT 95
[2023-09-21 09:00] VITALS: BP 104/67; BP 119/74; PULSE 78; RESP 18; O2SAT 94
[2023-09-21 09:06] VITALS: BP 106/69; BP 119/74; PULSE 68; RESP 18; TEMP 36.6; O2SAT 96
[2023-09-21 09:26] VITALS: BP 119/74
== END 2023-09-21 09:57 | disposition home or self-care (01) ==
LOC: EN 07:09 → AC 07:11
PROVIDERS: PCP Family Medicine; Referring Provider Family Medicine; Visit Provider Surgery
PROC: 0DJD8ZZ Inspection of Lower Intestinal Tract, Via Natural or Artificial Opening Endoscopic (ICD-10-PCS; CPT 45378; principal; 2023-09-21 08:10)
DX: K62.1 Rectal polyp (principal); K62.5 Hemorrhage of anus and rectum; K60.2 Anal fissure, unspecified; K64.4 Residual hemorrhoidal skin tags; Z87.891 Personal history of nicotine dependence; K64.0 First degree hemorrhoids; Z90.49 Acquired absence of other specified parts of digestive tract
CPT/HCPCS: 45380; 88305; J7120; J2405

== ENCOUNTER → 2024-10-13 | Outpatient (CLI) | payer OTHER, SELFPAY ==
--- NOTE | 2024-10-13 16:33 | RAD_ITS ---
EXAM: XR CHEST, 2 VIEWS CLINICAL INDICATION: PNEUMONIA TECHNIQUE: Frontal and lateral views of the chest. COMPARISON: 06/27/2021. FINDINGS: LUNGS AND PLEURAL SPACES: Unremarkable. No consolidation or edema. No pneumothorax. No effusion. HEART: Unremarkable. Cardiac silhouette not enlarged. MEDIASTINUM: Central airways and mediastinal contour are unremarkable. BONES/JOINTS: Unremarkable. No acute fracture. SOFT TISSUES: Unremarkable. RAD/Chest PA and Lateral IMPRESSION: No radiographic evidence of acute cardiopulmonary disease. Electronically Signed: David Veloz MD at 0:08 EST ,
[2024-10-13 17:39] LABS: Absolute Lymphocyte Count 2.17 X10^3/uL (0.83-4.51); Absolute Neutrophil Count 3.9 X10^3/uL (2.0-7.7); Basophil# 0.02 X10^3/uL; Basophil% 0.3 % (0-1); Eosinophil# 0.13 X10^3/uL; Eosinophils% 1.9 % (0-5); Hematocrit 41.7 % (40-54); Hemoglobin 14.1 g/dL (13.0-16.5); Lymphocyte # 2.17 X10^3/ul (0.83-4.51); Lymphocyte % 32.5 % (19-41); Mean Corp Hgb Conc 33.8 g/dL (32-36); Mean Corpuscular Hgb 28.6 pg (27.0-32.0); Mean Corpuscular Volume 84.6 fL (80-94); Mean Platelet Vol. 9.2 fl (6.2-12.0); NRBC Flagged by Analyzer 0 % (0-5); Neutrophil # 3.94 X10^3/uL (2.7-7.7); Platelet Count 313 K/mm3 (150-450); RBC Distribution Width CV 12.5 % (11.6-14.6); RBC Distribution Width SD 37.8 fl (35.1-43.9); Red Blood Count 4.93 M/mm3 (4.6-6.2); White Blood Count 6.7 K/mm3 (4.4-11.0)
== END | disposition home or self-care (01) ==
LOC: MTLAB 16:31
PROVIDERS: PCP Family Medicine; Referring Provider Family Medicine; Visit Provider Family Medicine
DX: J15.9 Unspecified bacterial pneumonia (principal)
CPT/HCPCS: 36415; 71046; 85025

== ENCOUNTER → 2025-01-10 | Outpatient (CLI) | payer OTHER, SELFPAY ==
[2025-01-16 05:06] LABS: QNTFERON TB Mitogen Value > 10.00 IU/mL (.); QNTFERON TB Nil Value 0.02 IU/mL (.); QNTFERON TB1+ Ag Value 0.03 IU/mL (.); QNTFERON TB2+ Ag Value 0.03 IU/mL (.); QNTIFERON TB Positive Criteria Negative (Negative)
== END | disposition home or self-care (01) ==
LOC: MTLAB 14:59
PROVIDERS: PCP Family Medicine; Referring Provider Physician Assistant; Visit Provider Physician Assistant
DX: L40.0 Psoriasis vulgaris (principal); B35.1 Tinea unguium; Z79.899 Other long term (current) drug therapy
CPT/HCPCS: 36415; 86480